=== PATIENT | male | born 1990 | race Caucasian/White ===

== ENCOUNTER 2017-10-24 20:30 | Emergency (ER) | payer BC, OTHER ==
[~2017-10-24] VITALS: Ht 182.9 cm; Wt 66.9 kg
[~2017-10-24 20:30] MED LIST: ACET650S10 PO; CLOTCRE5 TD
[2017-10-24 20:38] VITALS: Ht 182.9 cm; Wt 66.9 kg
[2017-10-24] MEDS ORDERED: ONDANSETRON INJ 2 MG/ML 2 ML VIAL IV STA (20:42)
[2017-10-24] MEDS ORDERED: SODIUM CHLORIDE 0.9% 1000ML 1,000 ML IV STA (20:42)
[2017-10-24] MEDS ORDERED: ACETAMINOPHEN 500 MG TAB PO STA (20:42)
[2017-10-24] MEDS ORDERED: LIDOCAINE/EPINEPH/TETRACAINE 1 EA SYR EXT STA (20:47)
[2017-10-24 21:00] VITALS: O2SAT 100
[2017-10-24 21:06] LABS: BASO % 0.3 %; BASO ABS # 0.03 K/uL (0-0.2); EOS % 5.7 %; HEMATOCRIT 37.7 % (42-52); HEMOGLOBIN 13.5 g/dL (14.0-18.0); IG# 0.02 K/uL (0.00-0.02); LYMPH % 30.1 %; LYMPH ABS # 2.63 K/uL (1.2-3.4); MEAN CELL VOLUME 88.5 fL (80-100); MEAN CORPUSCULAR HEMOGLOBIN 31.7 pg (25-34); MEAN CORPUSCULAR HGB CONC 35.8 g/dl (32-36); MONO ABS # 0.61 K/uL (0.11-0.59); NEUT % 56.7 %; NEUT ABS # 4.96 K/uL (1.4-6.5); PLATELET COUNT 215 K/uL (130-400); RED CELL DISTRIBUTION WIDTH CV 11.9 % (11.5-14.5); RED CELL DISTRIBUTION WIDTH SD 38.3 fL (36.4-46.3); WHITE BLOOD COUNT 8.75 K/uL (4.8-10.8)
[2017-10-24] MEDS ORDERED: DIPHTHERIA/TETANUS/PERTUSSIS 0.5 ML SYR/VIAL IM. ONE (21:15)
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
[2017-10-24 21:24] LABS: BLOOD UREA NITROGEN 20 mg/dl (7-18); CREATININE 0.95 mg/dl (0.60-1.40); GLUCOSE 89 mg/dl (70-99); SODIUM 138 mmol/L (136-145)
[2017-10-24 21:25] LABS: ALBUMIN 3.8 gm/dl (3.4-5.0); ALT/SGPT 24 U/L (12-78); AST/SGOT 30 U/L (15-37); CALCIUM 8.9 mg/dl (8.5-10.1); CARBON DIOXIDE 29 mmol/L (21-32); POTASSIUM 3.8 mmol/L (3.5-5.1)
[2017-10-24 21:27] LABS: ALKALINE PHOSPHATASE 99 U/L (45-117); TOTAL PROTEIN 7.2 gm/dl (6.4-8.2)
[2017-10-24] MEDS ORDERED: BUPR1SUB23 SL (21:27)
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
--- NOTE | 2017-10-24 22:03 | DIAGNOSTIC IMAGING REPORT ---
CHEST ONE VIEW PORTABLE HISTORY: 26 years-old Male EVALUATE FOR TRAUMA/INJURY acute chest injury. COMPARISON: None available TECHNIQUE: Portable AP view of the chest FINDINGS: Cardiomediastinal and hilar silhouettes are within normal limits. No pneumothorax, pleural effusion, focal airspace consolidation or overt pulmonary edema. The bones of the chest appear grossly intact. IMPRESSION: No acute process. The above report was generated using voice recognition software. It may contain grammatical, syntax or spelling errors. Electronically signed by: Karan Hughes M.D. 10/24/2017 10:01 PM Dictated Date/Time: 10/24/2017 10:00 PM
[2017-10-24] MEDS ORDERED: AMOX875T PO (23:22)
[2017-10-24] MEDS ORDERED: AMOXICILLIN/CLAVULANATE TAB 875 MG TAB PO ONE (23:30)
[2017-10-24 23:54] VITALS: BP 134/84; PULSE 83; O2SAT 98
== END 2017-10-24 23:56 | disposition home or self-care (01) ==
LOC: EDBD 20:30 → C.EDC 20:31
DX: S02.2XXB Fracture of nasal bones, initial encounter for open fracture (principal); S01.511A Laceration without foreign body of lip, initial encounter; V47.5XXA Car driver injured in collision with fixed or stationary object in traffic accident, initial encounter; Y93.89 Activity, other specified; Y99.8 Other external cause status; Y92.89 Other specified places as the place of occurrence of the external cause; F17.200 Nicotine dependence, unspecified, uncomplicated; Z23 Encounter for immunization